=== PATIENT | male | born 1990 | race Caucasian/White ===

== ENCOUNTER 2016-05-24 05:59 | Emergency (ER) | payer SELFPAY ==
[~2016-05-24] VITALS: Ht 170.2 cm; Wt 75.9 kg
[2016-05-24 06:08] VITALS: BP 145/92; PULSE 84; RESP 22; TEMP 98.8; O2SAT 93
[2016-05-24] MEDS ORDERED: SODIUM CHLORIDE 0.9% FLUSH 5 ML FLUSH IVF PRN (06:30)
[2016-05-24] MEDS ORDERED: DEXAMETHASONE SOD PHOS 4 MG/ML VIAL IM ONE (06:30)
[2016-05-24 06:41] VITALS: O2SAT 96
[2016-05-24] MEDS: RESP: ALBUTEROL 2.5 MG/IPRATROPIUM 0.5 MG NEB (SCH) INH ×2 (06:44→06:45)
[2016-05-24 06:48] VITALS: O2SAT 93
[2016-05-24] MEDS ORDERED: AZIT250T3 PO (06:51)
--- NOTE | 2016-05-24 06:52 | PD ---
HPI Chief Complaint: Respiratory Symptoms Time Seen by Provider: 06:29 Travel History International Travel<30 days: No Contact w/Intl Traveler<30days: No Traveled to known affect area: No History of Present Illness HPI 26-year-old male arrives complaining of cough dyspnea gradually worsening over the past 3 days. Cough is nonproductive. He smokes tobacco occasionally. He smokes marijuana occasionally. He has a history of asthma from multiple years prior. He denies any recent steroid use. He's had no sick contact. He does have a sore throat following severe coughing spells. [facility] Past Medical History ADHD: Yes Asthma: Yes Diminished Hearing: No Respiratory: Yes Integumentary: Yes (MRSA) Immunizations Current: Yes Tetanus Vaccination: Unknown Influenza Vaccination: No Past Surgical History Surgical History: No Previous Surgery Social History Alcohol Use: Yes (Occasionally) Tobacco Use: Yes ("Few cigarettes per week") Substance Use: Yes ("Marijuana occasionally") Allergies-Medications (Allergen,Severity, Reaction): Coded Allergies: No Known Allergies (Verified , 05/24/16) Reported Meds & Prescriptions Reported Meds & Active Scripts Active Review of Systems Except as stated in HPI: all other systems reviewed are Neg Physical Exam Narrative GENERAL: 26 yo M, WNWD, NAD SKIN: Warm and dry. HEAD: Atraumatic. Normocephalic. EYES: Pupils equal and round. No scleral icterus. No injection or drainage. ENT: No nasal bleeding or discharge. Mucous membranes pink and moist. NECK: Trachea midline. No JVD. CARDIOVASCULAR: Regular rate and rhythm. RESPIRATORY: Wheezing present bilaterally. No significant dyspnea/accessory muscle use. GASTROINTESTINAL: Abdomen soft, non-tender, nondistended. Hepatic and splenic margins not palpable. MUSCULOSKELETAL: Extremities without clubbing, cyanosis, or edema. No obvious deformities. NEUROLOGICAL: Awake and alert. No obvious cranial nerve deficits. Motor grossly within normal limits. Five out of 5 muscle strength in the arms and legs. Normal speech. PSYCHIATRIC: Appropriate mood and affect; insight and judgment normal. Data Data Last Documented VS Vital Signs Date Time Temp Pulse Resp B/P Pulse Ox O2 Delivery O2 Flow Rate FiO2 05/24/16 06:41 96 Room Air 05/24/16 06:21 20 05/24/16 06:08 98.8 84 145/92 VS reviewed Orders Ecg Monitoring (05/24/16 06:29) Oximetry (05/24/16 06:29) Albuterol-Ipratropium Neb (Duoneb Neb) (05/24/16 06:30) Sodium Chloride 0.9% Flush (Ns Flush) (05/24/16 06:30) Dexamethasone Inj (Decadron Inj) (05/24/16 06:30) MDM Medical Decision Making Medical Screen Exam Complete: Yes Emergency Medical Condition: Yes Medical Record Reviewed: Yes Differential Diagnosis asthma, pna, viral syndrome Narrative Course Patient has wheezing. He received I'm Decadron. He received multiple rounds DuoNeb. We'll give him an albuterol inhaler and azithromycin. Diagnosis Primary Impression: Cough Additional Impression: Wheezing Referrals: Primary Care Physician 2 days Additional Instructions: You have a choice when it comes to health care, and we are glad that you chose [facility]. Hopefully, we have met your expectations on today's visit. You are welcome to return to [facility] at any time, as we are committed to meeting the health care needs of our community. Med/Other Pt SpecificInfo: Prescription(s) given Scripts Azithromycin 250 Mg [id number] Mg PO DIRECTED #6 TAB Ref 0 Take 2 tabs (500 mg) on day 1 then 1 tab daily x 4 days. Prov:Manuel Roman MD 05/24/16 Disposition: 01 DISCHARGE HOME Condition: Stable Manuel Roman MD May 24, 2016 06:52
[2016-05-24] MEDS ORDERED: ALBUTEROL SULFATE 90 MCG/ACT HFA 8 GM INHALER INH ONE (07:00)
[2016-05-24 07:35] VITALS: BP 141/73
== END 2016-05-24 07:36 | disposition home or self-care (01) ==
LOC: PHED 05:59
DX: R05 Cough (principal); R06.2 Wheezing; Z72.0 Tobacco use
CPT/HCPCS: 94640; 94664; 96372; 99283; J1100